=== PATIENT | female | born 1955 ===

== ENCOUNTER 2021-11-15 07:54 | Day surgery (SDC) | payer OTHER ==
[~2021-11-15 07:54] MED LIST: DIOVAN320 MG; PROCARDIA XL; SINGULAIR10 MG
== END 2021-11-15 16:25 | disposition home or self-care (01) ==
LOC: CIR.AMB 07:54
PROVIDERS: ATTEND Colon & Rectal Surgery
DX: K62.82 Dysplasia of anus (principal); K64.2 Third degree hemorrhoids; I10 Essential (primary) hypertension; Z86.16 Personal history of COVID-19; E03.9 Hypothyroidism, unspecified